=== PATIENT | male | born 1945 | race Caucasian/White ===

== ENCOUNTER → 2019-07-18 08:09 | Outpatient (BNVA) | payer MEDICARE, OTHER, SELFPAY | PROVIDERS: Family Provider Nurse Practitioner; PCP Nurse Practitioner; Visit Provider Urology | DX: R39.9 Unspecified symptoms and signs involving the genitourinary system (principal); N40.1 Benign prostatic hyperplasia with lower urinary tract symptoms; N39.41 Urge incontinence | CPT/HCPCS: 81001 ==

== ENCOUNTER 2019-11-29 08:08 | Outpatient (CLI) | payer MEDICARE, OTHER, SELFPAY ==
--- NOTE | 2019-11-29 08:21 | US_ITS ---
WS: [id number] ULTRASOUND RENAL TECHNIQUE: Ultrasound examination of both kidneys. CLINICAL INFORMATION: . COMPARISON: None. FINDINGS: RIGHT: Right kidney is normal in size and appearance. Echogenicity: Normal. Hydronephrosis: None. Perinephric fluid: None. Right kidney measures: 10.5 cm x 5.1 cm x 5.3 cm. LEFT: Left renal cyst measuring 9.7 cm x 7.6 mm Left kidney is normal in size and appearance. Echogenicity: Normal. Hydronephrosis: None. Perinephric fluid: None. Left kidney measures: 10.1 cm x 5.1 cm x 5.0 cm. Normal visualized aorta.Prevoid bladder 155 cc. postvoid 143 cc. Incomplete poor bladder emptying. US/US renal BI* [id number] IMPRESSION: 1. Left renal cyst measuring 9.7 x 7.6 mm. 2. Prevoid bladder 155 cc. Postvoid 143 cc. Incomplete bladder emptying. 3. No hydronephrosis in either kidney.
== END 2019-11-29 08:09 | disposition home or self-care (01) ==
LOC: RAD 08:14
PROVIDERS: PCP Nurse Practitioner; Visit Provider Urology
DX: N40.1 Benign prostatic hyperplasia with lower urinary tract symptoms (principal); N28.1 Cyst of kidney, acquired
CPT/HCPCS: 76770

== ENCOUNTER → 2020-03-05 08:01 | Outpatient (BNVA) | payer MEDICARE, OTHER, SELFPAY | PROVIDERS: PCP Nurse Practitioner; Visit Provider Urology | DX: N40.1 Benign prostatic hyperplasia with lower urinary tract symptoms (principal); N39.41 Urge incontinence; N36.8 Other specified disorders of urethra | CPT/HCPCS: 81001 ==

== ENCOUNTER → 2022-02-24 09:29 | Outpatient (BNVA) | payer MEDICARE, SELFPAY | PROVIDERS: PCP Nurse Practitioner Family; Visit Provider Surgery | DX: Z86.010 Personal history of colon polyps (principal); K42.9 Umbilical hernia without obstruction or gangrene | CPT/HCPCS: 99203 ==

== ENCOUNTER 2022-04-16 06:49 | Day surgery (SDC) | payer MEDICARE, SELFPAY ==
[2022-04-14 13:34] VITALS: BMI 29.4
[2022-04-16 07:16] VITALS: BP 161/84; PULSE 49; RESP 16; TEMP 36.1; O2SAT 97
--- NOTE | 2022-04-16 07:22 | W.PM.OPSFHP ---
Same Day Surgery H&P Indication for Procedure/HPI DATE OF PROCEDURE: April 16, 2022 CHIEF COMPLAINT/INDICATIONFOR SURGICAL PROCEDURE: History of colon polyps PREOP DIAGNOSIS: History of colon polyps PLANNED PROCEDURE: Operation Date: 04/16/22 08:30 Proposed Procedures p Colonoscopy 30368,Z86.010(Not Applicable) - Inocencio Simons MD 02/16/2022 This is a pleasant 77 years old gentleman with history of colon polyps.? Referred to my practice to discuss surveillance colonoscopy.? He also reports history of constipation but no change in bowel movement caliber.? No history of bleeding per rectum and he reports history of chronic umbilical hernia that bothers him every now and then. 04/16/2022 Patient comes today for surveillance colonoscopy ROS All systems have been reviewed negative except as for the above or per problem list. Medications/Allergies* Home Medications Medication Instructions Recorded Confirmed Type acetaminophen 500 mg tablet 500 mg PO DAILY 07/18/19 04/14/22 History (Tylenol Extra Strength) aspirin 325 mg tablet 325 mg PO DAILY 07/18/19 04/14/22 History calcium carbonate 600 mg-vitamin 1 cap PO DAILY 07/18/19 04/14/22 History D3 12.5 mcg (500 unit) capsule (Calcium 600 with Vitamin D3) garlic 1,000 mg capsule 1,000 mg PO DAILY 07/18/19 04/14/22 History hydrochlorothiazide 25 mg tablet 25 mg PO .QOD 07/18/19 04/14/22 History lisinopril 20 mg tablet 20 mg PO DAILY 07/18/19 04/14/22 History metformin 850 mg tablet 850 mg PO DAILY 07/18/19 04/14/22 History sildenafil 100 mg tablet (Viagra) 100 mg PO DAILY PRN Sexual Activity 07/18/19 04/16/22 History wheat dextrin 3 gram/3.5 gram oral 1 packet PO DAILY 07/18/19 04/14/22 History powder (Best Fiber) multivitamin 1 tab PO DAILY 02/24/22 04/14/22 History Allergies/Adverse Reactions Allergy/AdvReac Type Severity Reaction Status Date / Time No Known Allergies Allergy Verified 04/16/22 07:54 Pertinent History/Comorbid Conditions* Medical History (Updated 02/25/22 @ 17:10 by Inocencio Simons MD) BPH NOS w ur obs/LUTS Diabetes mellitus Erectile dysfunction Lower urinary tract symptoms (LUTS) Nocturia Urgency incontinence Surgical History (Updated 11/29/19 @ 09:35 by Indiana Ovalle APRN) History of back surgery Family History (Updated 07/11/19 @ 17:28 by JIGAR Bryant) Diabetes Mother CAD (coronary artery disease) Mother Cancer Mother Father Hypertension Father Social History Smoking and tobacco status: former smoker Adopted: No Caregiver/support person: No Lives independently: No Household members: spouse Marital status: History of recent travel: No Pertinent Exam Findings alert, oriented x 3, regular rate & rhythm and procedure specific exam findings (Abdominal exam nontender nondistended soft) Recommendations Surgery/Procedure today (Colonoscopy with possible biopsy) Coding Level of Care Code Acute Accounts Receivable Accountant for Vivek Jarquin
[2022-04-16] MEDS: sodium chloride 0.9% 1,000 ML 30 ML IV (07:28)
[2022-04-16 07:32] LABS: Glucose Point of Care 95 mg/dL (70-110)
--- NOTE | 2022-04-16 07:40 | ANES.PREANE2 ---
Pre-Anesthetic Assessment Height/Weight: Height 1.78 m Weight 92.986 kg Temp Pulse Resp BP Pulse Ox O2 Del Method 97.0 F L 49 L 16 161/84 97 04/16/22 07:16 04/16/22 07:16 04/16/22 07:16 04/16/22 07:16 04/16/22 07:16 04/16/22 07:16 Preop Diagnosis: History of colon polyps Operation Date: 04/16/22 08:30 Proposed Procedures p Colonoscopy 36198,Z86.010(Not Applicable) - Inocencio Simons MD Familial anesthetic complications: None Was Beta Neo taken within 24 hours: N/A Was Clonidine taken within 24 hours: N/A Last intake: Intake Last Liquid Date 04/15/22 Last Liquid Time 20:00 Last Solid Date 04/14/22 Last Solid Time 18:00 Social No alcohol and No tobacco Exam alert, oriented x 3, clear to auscultation bilaterally and regular rate & rhythm Airway Mallampati: Class III Dentition: false CV/HEM Hypertension Metabolic Diabetes Mellitus Anesthetic Plan ASA status: 3 Anesthesia: MAC Risk of > 500 ml blood loss (7ml/kg in children): No Medications/Allergies Home Medications Medication Instructions Recorded Confirmed Last Taken Type acetaminophen 500 mg tablet 500 mg PO DAILY 07/18/19 04/14/22 04/14/22 History (Tylenol Extra Strength) aspirin 325 mg tablet 325 mg PO DAILY 07/18/19 04/14/22 04/14/22 History calcium carbonate 600 mg-vitamin 1 cap PO DAILY 07/18/19 04/14/22 04/14/22 History D3 12.5 mcg (500 unit) capsule (Calcium 600 with Vitamin D3) garlic 1,000 mg capsule 1,000 mg PO DAILY 07/18/19 04/14/22 04/14/22 History hydrochlorothiazide 25 mg tablet 25 mg PO .QOD 07/18/19 04/14/22 04/14/22 History lisinopril 20 mg tablet 20 mg PO DAILY 07/18/19 04/14/22 04/14/22 History metformin 850 mg tablet 850 mg PO DAILY 07/18/19 04/14/22 04/14/22 History oxybutynin chloride 5 mg tablet 5 mg PO BID #60 tabs 07/18/19 04/14/22 04/14/22 Rx sildenafil 100 mg tablet (Viagra) 100 mg PO DAILY PRN Sexual Activity 07/18/19 04/16/22 Unknown History wheat dextrin 3 gram/3.5 gram oral 1 packet PO DAILY 07/18/19 04/14/22 04/14/22 History powder (Best Fiber) tamsulosin 0.4 mg capsule 0.4 mg PO .TWICE A DAY #60 caps 08/15/19 04/14/22 04/14/22 Rx multivitamin 1 tab PO DAILY 02/24/22 04/14/22 04/14/22 History peg 3350-electrolytes 236 240 ml PO Q10M #4,000 mL 02/24/22 04/14/22 04/15/22 Rx gram-22.74 gram-6.74 gram-5.86 gram solution (Golytely) Allergies Allergy/AdvReac Type Severity Reaction Status Date / Time No Known Allergies Allergy Verified 04/14/22 13:27 Current Medications Generic Name Dose Route Start Last Admin Trade Name Freq PRN Reason Stop Dose Admin Sodium Chloride 1,000 mls @ 30 mls/hr 04/16/22 07:00 04/16/22 07:28 Sodium Chloride 0.9% IV 04/17/22 06:59 30 mls/hr .Q24H MAKAYLA Administration PFSH Anesthesia Medical History BPH NOS w ur obs/LUTS Diabetes mellitus Erectile dysfunction Lower urinary tract symptoms (LUTS) Nocturia Urgency incontinence Surgical History History of back surgery Family History Mother CAD (coronary artery disease) Diabetes Cancer Father Hypertension Cancer Social History Smoking and tobacco status: former smoker Adopted: No Caregiver/support person: No Lives independently: No Household members: spouse Marital status: History of recent travel: No Data Anesthesia Cardiac Studies: No Data to Display
[2022-04-16 08:51] VITALS: BP 165/114; PULSE 83; RESP 18; TEMP 36.2; O2SAT 99
[2022-04-16 09:07] VITALS: BP 166/108; PULSE 85; RESP 18; O2SAT 97
[2022-04-16 09:27] VITALS: BP 183/109; PULSE 79; RESP 18; O2SAT 99
[2022-04-16] MEDS: hyDRALAzine 20 mg/mL INJ 1 mL 5 MG IVP (09:35)
[2022-04-16 09:45] VITALS: BP 174/97; PULSE 75; RESP 18; O2SAT 98
--- NOTE | 2022-04-16 12:41 | ANE.PACU2 ---
Inpatient post-anesthesia follow up: Airway intact: Yes Vital signs: Temperature 97.1 F Pulse Rate 75 Respiratory Rate 18 Blood Pressure 174/97 Pulse Oximetry 98 Oxygen Delivery Me thod Room Air Oxygen Flow Rate Fraction of Inspir ed Oxygen Hydration adequate: Yes Nausea and vomiting: No Pain level: 1 Mental status: Baseline
== END 2022-04-16 09:50 | disposition home or self-care (01) ==
PROVIDERS: PCP Nurse Practitioner Family; Visit Provider Surgery
PROC: 0DJD8ZZ Inspection of Lower Intestinal Tract, Via Natural or Artificial Opening Endoscopic (ICD-10-PCS; CPT 45378; principal; 2022-04-16 08:30)
DX: Z12.11 Encounter for screening for malignant neoplasm of colon (principal); Z86.010 Personal history of colon polyps; K57.30 Diverticulosis of large intestine without perforation or abscess without bleeding; D12.8 Benign neoplasm of rectum; K63.5 Polyp of colon; Z79.82 Long term (current) use of aspirin; N40.1 Benign prostatic hyperplasia with lower urinary tract symptoms; N13.8 Other obstructive and reflux uropathy; E11.9 Type 2 diabetes mellitus without complications; Z87.891 Personal history of nicotine dependence; I10 Essential (primary) hypertension; Z79.84 Long term (current) use of oral hypoglycemic drugs
CPT/HCPCS: 36416; 45380; 82962; 88305; J0360; J2704; J3490; J7030

== ENCOUNTER → 2022-04-28 15:21 | Outpatient (BNVA) | payer MEDICARE, SELFPAY | PROVIDERS: PCP Nurse Practitioner Family; Visit Provider Surgery | DX: Z09 Encounter for follow-up examination after completed treatment for conditions other than malignant neoplasm (principal); K57.31 Diverticulosis of large intestine without perforation or abscess with bleeding; K42.9 Umbilical hernia without obstruction or gangrene; Z86.010 Personal history of colon polyps | CPT/HCPCS: 99212 ==

== ENCOUNTER 2022-10-12 06:51 | Outpatient (CLI) | payer MEDICARE, SELFPAY ==
--- NOTE | 2022-10-12 | MR_ITS ---
WS: [id number] MRI LUMBAR SPINE NONCONTRAST TECHNIQUE: Sagittal T1, T2 and STIR imaging. Axial T1 and T2 imaging. CLINICAL INFORMATION: LOW BACK PAIN COMPARISON: MRI 4 FINDINGS: Postoperative changes are new compared to 2018. Pedicle screw fixation L3-L5. Interbody fusion L3-L4 and L4-L5. Laminectomy defects L3-L4 and L4-L5. T12-L1: Shallow central disc protrusion with moderate central canal stenosis. Impingement subarticula r recess bilaterally. Moderate facet arthropathy. Remote appearing laminectomy defects. Moderate bila teral foraminal narrowing. Central canal stenosis appears progressed compared to previous. Crowding o f the cauda equina nerve rootlets. Disc protrusion appears progressed. L1-L2: Slight retrolisthesis. Disc space narrowing at this level has progressed. Moderate to severe c entral canal stenosis has significantly progressed. Moderate bilateral foraminal narrowing LEFT great er than RIGHT. Moderate facet arthropathy. L2-L3: Mild disc bulging with central disc protrusion. Impingement on the RIGHT greater than LEFT sub articular recess. Moderate central canal stenosis appears slightly progressed. Impingement traversing RIGHT L3 nerve root. Moderate facet arthropathy. Moderate to severe RIGHT and mild LEFT foraminal na rrowing. L3-L4: Decompressive laminectomies. Spinal canal and foramen are patent. This is improved compared to previous. L4-L5: Laminectomy defects. Spinal canal is patent. Moderate facet arthropathy. Foramen are patent. L5-S1: Mild annular bulging with osteophytic ridging. Impingement on the LEFT S1 nerve root. Advanced facet arthropathy. Mild LEFT foraminal narrowing. Visualized pelvic bony structures: Normal. Paravertebral soft tissues: Normal. Small bilateral renal cysts . MR/MR lumbar spine wo con* [id number] IMPRESSION: 1. Postoperative changes are new since 2018. 2. Moderate to severe central canal stenosis L1-L2 significantly progressed co mpared to previous. Impingement on the LEFT subarticular recess. 3. Moderate central canal stenosis T12-L1 with crowding of the cauda equina ne rve rootlets. Interval decompressive laminectomy with persistent narrowing of t he thecal sac appears slightly progressed compared to previous with progressed central protrusion. 4. Moderate central canal stenosis L2-L3 appears slightly progressed with impi ngement traversing RIGHT L3 nerve root. 5. Spinal canal is patent at L3-L5. 6. Disc bulge L5-S1 impinges the LEFT S1 nerve root. 7. Multilevel foraminal narrowing described above worse at bilateral T12-L1, L EFT L1-L2, RIGHT L2-L3
== END 2022-10-12 06:52 | disposition home or self-care (01) ==
LOC: RAD 06:54
PROVIDERS: PCP Nurse Practitioner Family; Visit Provider Nurse Practitioner Family
DX: M48.062 Spinal stenosis, lumbar region with neurogenic claudication (principal); M48.04 Spinal stenosis, thoracic region; M51.37 Other intervertebral disc degeneration, lumbosacral region
CPT/HCPCS: 72148

== ENCOUNTER → 2022-11-04 08:45 | Outpatient (BNVA) | payer MEDICARE, SELFPAY | PROVIDERS: PCP Nurse Practitioner Family; Referring Provider Nurse Practitioner Family; Visit Provider Orthopaedic Surgery | DX: M54.50 Low back pain, unspecified (principal); M48.062 Spinal stenosis, lumbar region with neurogenic claudication; M54.9 Dorsalgia, unspecified | CPT/HCPCS: 72110; 99204 ==

== ENCOUNTER → 2023-01-20 08:03 | Outpatient (BNVA) | payer MEDICARE, SELFPAY | PROVIDERS: PCP Nurse Practitioner Family; Visit Provider Orthopaedic Surgery | DX: M48.062 Spinal stenosis, lumbar region with neurogenic claudication (principal) | CPT/HCPCS: 72110; 99214 ==

== ENCOUNTER → 2023-02-22 08:39 | Outpatient (BNVA) | payer MEDICARE, SELFPAY | PROVIDERS: PCP Nurse Practitioner Family; Visit Provider Orthopaedic Surgery | DX: M48.062 Spinal stenosis, lumbar region with neurogenic claudication (principal); Z98.1 Arthrodesis status | CPT/HCPCS: 72100; 99214 ==

== ENCOUNTER → 2023-04-12 09:09 | Outpatient (BNVA) | payer MEDICARE, SELFPAY | PROVIDERS: PCP Nurse Practitioner Family; Visit Provider Orthopaedic Surgery | DX: M48.062 Spinal stenosis, lumbar region with neurogenic claudication (principal); Z01.812 Encounter for preprocedural laboratory examination | CPT/HCPCS: 72100; 80053; 81003; 85025; 99214 ==

== ENCOUNTER 2023-05-04 18:32 | Inpatient (IN) | payer MEDICARE, SELFPAY ==
[2023-05-04] VITALS (62 sets, daily range): BP systolic 95–196; BP diastolic 58–92; PULSE 52–104; RESP 0–24; TEMP 35.8–36.6; O2SAT 93–99; BMI 29.4
[2023-05-04] MEDS: sodium chloride 0.9% 1,000 ML 30 ML IV (10:40)
[2023-05-04 10:41] LABS: Glucose Point of Care 98 mg/dL (70-110)
[2023-05-04] MEDS: HYDROmorphone 1 mg/mL INJ 1 mL 0.5 MG IVP (11:19)
[2023-05-04] MEDS: methadone 10 mg Tablet PO (11:21)
--- NOTE | 2023-05-04 11:31 | ANES.PREANE2 ---
Pre-Anesthetic Assessment Height/Weight: Height 1.78 m Weight 92.986 kg Temp Pulse Resp BP Pulse Ox O2 Del Method 97.8 F 52 L 18 196/92 95 Room Air 05/04/23 10:22 05/04/23 10:22 05/04/23 11:21 05/04/23 10:22 05/04/23 11:21 05/04/23 10:23 Preop Diagnosis: Lumbar stenosis, failed back fusion Operation Date: 05/04/23 11:30 Proposed Procedures p Thoracic Fusion(Not Applicable) - Richard England DO s Lumbar Spine Decompression Lumbar Decompression(Not Applicable) - Richard England DO s Sacroiliac Joint Fusion SI Joint Fusion(Not Applicable) - Richard England DO Familial anesthetic complications: Christianity Was Beta Neo taken within 24 hours: N/A Was Clonidine taken within 24 hours: N/A Last intake: Intake Last Liquid Date 05/03/23 Last Liquid Time 18:00 Last Solid Date 05/03/23 Last Solid Time 18:00 Social No alcohol and No tobacco Exam alert, oriented x 3, clear to auscultation bilaterally and regular rate & rhythm Airway Submandibular: within normal limits Cervical ROM: within normal limits Mallampati: Class II Dentition: false (upper) CV/HEM Hypertension Metabolic Diabetes Mellitus Musc/skel Lower Back Pain and Osteoarthritis/DJD Neuropsych chronic pain Anesthetic Plan ASA status: 3 Anesthesia: General Other: Discussed a.line, ICU, and blood transfusion (patient refuses any blood products based on sabianist reasons and is aware of potential for significant blood loss) Medications/Allergies Home Medications Medication Instructions Recorded Confirmed Last Taken Type aspirin 325 mg tablet 325 mg PO DAILY 07/18/19 05/03/23 04/14/22 History calcium carbonate 600 mg-vitamin 1 cap PO DAILY 07/18/19 05/03/23 04/28/23 History D3 12.5 mcg (500 unit) capsule (Calcium 600 with Vitamin D3) garlic 1,000 mg capsule 1,000 mg PO DAILY 07/18/19 05/03/23 04/28/23 History hydrochlorothiazide 25 mg tablet 12.5 mg PO .QOD 07/18/19 05/03/23 05/03/23 History lisinopril 20 mg tablet 10 mg PO DAILY 07/18/19 05/03/2323 History metformin 850 mg tablet 425 mg PO DAILY 07/18/19 05/03/23 05/02/23 History oxybutynin chloride 5 mg tablet 5 mg PO BID #60 tabs 07/18/19 05/03/23 05/02/23 Rx multivitamin 1 tab PO DAILY 02/24/22 05/03/23 04/28/23 History glucosamine-chondroitin 250 mg-200 2 tab PO TID 04/28/23 05/03/23 04/28/23 History mg tablet (Osteo Bi-Flex) saw palmetto 500 mg capsule 500 mg PO BID 04/28/23 05/03/23 04/28/23 History sour crow extract 1,000 mg 1,000 mg PO DAILY 04/28/23 05/03/23 04/28/23 History capsule (Tart Crow Extract) Allergies Allergy/AdvReac Type Severity Reaction Status Date / Time No Known Allergies Allergy Verified 05/03/23 08:52 Current Medications Generic Name Dose Route Start Last Admin Trade Name Freq PRN Reason Stop Dose Admin Hydromorphone HCl 0.5 mg 05/04/23 10:05 05/04/23 11:19 Hydromorphone 1 Mg/Ml Inj 1 Ml IVP 0.5 mg ONCE PRN Administration For preop pain/anxiety Sodium Chloride 1,000 mls @ 30 mls/hr 05/04/23 10:15 05/04/23 10:40 Sodium Chloride 0.9% IV 05/05/23 10:14 30 mls/hr .Q24H MAKAYLA Administration PFSH Anesthesia Medical History Erectile dysfunction Nocturia Diabetes mellitus BPH NOS w ur obs/LUTS Urgency incontinence Lower urinary tract symptoms (LUTS) Surgical History History of back surgery Family History Mother CAD (coronary artery disease) Diabetes Cancer Father Hypertension Cancer Social History Smoking and tobacco/nicotine status: former use of tobacco/nicotine Substance/Drug Use: never Adopted: No Caregiver/support person: No Lives independently: No Household members: spouse Marital status: Data Anesthesia Cardiac Studies: No Data to Display
--- NOTE | 2023-05-04 11:42 | W.PM.OPSUD ---
Surgery/Procedure H&P Update DATE OF PROCEDURE: May 04, 2023 DATE H&P PERFORMED: 04/28/23 H&P UPDATE INFORMATION: I have reviewed H&P completed within last 30 days, I have examined patient prior to procedure and No changes to prior documentation PREOP DIAGNOSIS: Lumbar stenosis, failed back fusion PLANNED PROCEDURE: Operation Date: 05/04/23 11:30 Proposed Procedures p Thoracic Fusion(Not Applicable) - DO dex Choudhary Lumbar Spine Decompression Lumbar Decompression(Not Applicable) - DO dex Choudhary Sacroiliac Joint Fusion SI Joint Fusion(Not Applicable) - Richard England DO
[2023-05-04] MEDS: ceFAZolin 2,000 MG in sodium chloride 0.9% (plus) 50 ML 100 MG IV ×2 (12:45→16:43)
[2023-05-04] MEDS: lidocaine-epi 2% 20 mL INJ INJECTION (14:29)
[2023-05-04] MEDS: vancomycin 1,000 MG SDV 1000 MG (14:30)
[2023-05-04] MEDS: heparin, porcine 1,000 unit/mL INJ 10 mL 10000 UNIT XX (14:30)
[2023-05-04] MEDS: thrombin 5,000 unit SDV 5000 UNIT XX ×2 (14:31→18:05)
--- NOTE | 2023-05-04 16:05 | PC.NURSE ---
Updated patient's friend, Viridiana, of patient's status and the expected ETA for end of surgery. Viridiana stated that she was going to go home and requested to be called when the surgery is completed and what room number he has.
--- NOTE | 2023-05-04 18:38 | P.OP_ITS ---
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 Posterior fusion T10 -pelvis 3.? Instrumentation T10-S1 4.? Lumbopelvic instrumentation 5. open right Sacral iliac fusion 6. open left sacral iliac fusion 7. L1/2 laminectomy with partial facetectomies 8. L2/3 laminectomy with partial facetectomies 9. use of computer navigation / stereotactic spine 10. use of autograft from same incision 11. allograft 12. Bone marrow aspirate from right iliac crest 13. Removal of deep hardware from the spine Surgeon: Richard England DO Estimated blood loss (mL): 800 Complications: There was a small bleb that occurred by the right L3 pedicle. There was no dural leak but I did place a DuraGen patch as well as DuraSeal to protect this area Where the arachnoid layer was exposed. Procedure: 1.? Posterior fusion T10 -pelvis 3.? Instrumentation T10-S1 4.? Lumbopelvic instrumentation 5. open right Sacral iliac fusion 6. open left sacral iliac fusion 7. L1/2 laminectomy with partial facetectomies 8. L2/3 laminectomy with partial facetectomies 9. use of computer navigation / stereotactic spine 10. use of autograft from same incision 11. allograft 12. Bone marrow aspirate from right iliac crest 13. Removal of deep hardware from the spine Patient is brought to the operative suite.? After undergoing anesthesia, the patient had neuro monitoring attached.? Patient was then placed in the prone position on the Logan table.? All areas of impingement were well-padded.? Patient was then prepped and draped in the normal sterile fashion.? Skin incision was then made over the T10 to the sacrum.? Subperiosteal dissection was made out to the transverse processes of of T10 bilaterally, T11 bilaterally, T12 bilaterally, L1 bilaterally, L2 bilaterally? L3 bilaterally L4 bilaterally L5 bilaterally and sacral ala bilaterally.? Next attention was brought to the screws at L3-5 bilaterally. Caps were removed and then the rods were removed and the screws were left in place. However the L4 and L5 screws on the right side went online so I removed those 2 screws. The caps were saved for later use when connecting the rods. The [employer] bone marrow aspirate kit was used to aspirate bone marrow aspirate.? This was done by using the sharp probe to open up the bone.? Aspiration was performed and then the blunt probe was then used to dissect down to through the bone tunnel.? An aspirating well drawn back a millimeter approximately 10 cc of bone marrow aspirate was used.? Admixed with the allograft and autograft bone that will be used. Next tension was brought to placing the fiducial for the computer navigation.? 2 pins were placed into the right iliac crest.? The fiducial was attached.? The C- arm was brought in and information from the C arm was then linked to the computer used for placing the screws.? Next attention was brought to placing the pedicle screws.? This was done by using the gearshift probe.? The probe was used to identify the pedicle.? Then the pedicle feeler was used followed by placement of screw.? This was done at T10 bilaterally, T11 bilaterally, T12 and L1 bilaterally L2 bilaterally. L3 through 5 where the old screws, and S1 bilaterally. Next attension was brought to placing the iliac screws.? This was done using the sacral ala iliac technique.? The gearshift probe linked to computer navigation was then placed through the sacral ala into the sacroiliac joint into the iliac crest.? Next the pedicle feeler was used followed by the computer navigated tap.? And then the screw was passed a 80 mm screw was placed on the right side and a 60 mm screw was placed on the left side.? Both the screws were 9.5 mm in diameter. Next attension was brought to performing the open and sacral iliac fusion.? This was done by again using the gearshift probe linked to computer navigation.? Followed by pedicle feeler followed by placing a wire and then the drill drilled over the wire and then bone graft was packed into the sacroiliac joint and into the drill hole.? And the sacroiliac screw was then placed.? This technique was done on both the right and left side. Next attention was brought to performing the laminectomy of L2.? This was done using the high-speed bur Kerrisons and curettes.? Once the lamina was removed and then attention was brought to performing a partial facetectomy on the contralateral side.? This was done again using the high-speed bur curettes and Kerrisons.? The ligamentum flavum was taken down bilaterally from L2 to L3.? Attention was then brought to the facet on the ipsilateral side.? The facet was taken down.? The L3 nerve was decompressed as it passed around the L3 pedicle.? The laminectomy was done for purposes of decompressing the nerve.? The L2 nerve was identified as it traversed through the L2/3 foramen.? The L3 nerve was traced around the L3 pedicles bilateral.? The scar tissue was pulled off the dura.? Bleb that occurred when the scar tissue was pulled and there was no dural leak. This bleb was right on the right side next to the right pedicle of L3 I placed a DuraGen patch and DuraSeal over it. Next attention was brought to performing the laminectomy of L1.? This was done using the high-speed bur Kerrisons and curettes.? Once the lamina was removed and then attention was brought to performing a partial facetectomy on the c ontralateral side.? This was done again using the high-speed bur curettes and Kerrisons.? The ligamentum flavum was taken down bilaterally from L1 to L2.? Attention was then brought to the facet on the ipsilateral side.? The facet was taken down.? The L2 nerve was decompressed as it passed around the L2 pedicle.? The laminectomy was done for purposes of decompressing the nerve.? The L2 nerve was identified as it traversed through the L2/3 foramen.? The L3 nerve was traced around the L5 pedicles bilateral.? The scar tissue was pulled off the dura.? There was found to be in good repair. Attention was then brought to attaching the rods to the screws placed in the T10 bilaterally, T11 bilaterally, T12 bilaterally, L 2 on the left?L3 bilaterally L4 bilaterally L5 bilaterally and S1 bilaterally.? The L4 and L5 screws that were previously and were removed for better alignment of the vignesh. The old caps were used from the [employer] screws at L3 bilaterally and L4and L5 on the left side. This was then attached to the sacroiliac screw providing the lumbopelvic fixation.? Caps were torqued into position. Locking the construct in place. Wound was copiously irrigated and then attention was brought to decorticating the facets and transverse processes laterally.? Bone that was taken down from the lamina was used along with osteoamp fibers and sponges were packed into the lateral gutters along the facet joints.? This was done bilaterally. Wound was then closed in a layered fashion starting with the thoracolumbar fascia.? 0-vicryl was used the sub cutaneous tissue was closed with 2-0 vicryl and skin with 4-0 monocryl.? Glue was then used to seal the skin and a steril dressing was applied.? Patient was then placed in the supine position. The endotracheal tube was removed and patient was transferred to the PACU in stable condition.
--- NOTE | 2023-05-04 18:40 | XR_ITS ---
WS: [id number] Lumbar spine, C-arm fluoroscopy views, 05/04/2023 Clinical Data: OR PICS Comparison: Lumbar spine, 04/12/2023 Findings: Dr. England performed an extensive posterior thoracolumbar fusion with bilateral pedicle screws and con necting rods. Impression: Posterior thoracolumbar fusion.
[2023-05-04] MEDS: lactated ringers 1,000 ML 90 ML IV (19:44)
--- NOTE | 2023-05-04 20:45 | PM.CONSULT ---
Providers/Reason For Consult Consulting Physician/Specialty*: Hospitalist Reason for Consult*: Postoperative management Attending Physician: Richard England DO Primary Care Provider: ARTEMIO Rollins History of Present Illness History of Present Illness Linden Graham is a 78 year old male postop day 0 status post spinal fusion with estimated blood loss 800 mL, removal of deep hardware from the spine, when I evaluated the patient patient was on 5 L oxy mask, with stable hemodynamics patient was lethargic fatigue somewhat confused after getting propofol during surgery, he is able to protect airway, moving his extremities, he does have 300 mL in the Hemovac drain, Carpenter catheter draining concentrated urine, patient is a Spiritism with history of diabetes, hypertension, I requested ICU nurse to get CBC, CMP and give 1 bag of albumin Review of Systems General: Reports: ROS unobtainable due to medical condition Medications/Allergies Home Medications Medication Instructions Recorded Confirmed Last Taken Type aspirin 325 mg tablet 325 mg PO DAILY 07/18/19 05/03/23 04/14/22 History calcium carbonate 600 mg-vitamin 1 cap PO DAILY 07/18/19 05/03/23 04/28/23 History D3 12.5 mcg (500 unit) capsule (Calcium 600 with Vitamin D3) garlic 1,000 mg capsule 1,000 mg PO DAILY 07/18/19 05/03/23 04/28/23 History hydrochlorothiazide 25 mg tablet 12.5 mg PO .QOD 07/18/19 05/03/23 05/03/23 History lisinopril 20 mg tablet 10 mg PO DAILY 07/18/19 05/03/23 05/03/23 History metformin 850 mg tablet 425 mg PO DAILY 07/18/19 05/03/23 05/02/23 History oxybutynin chloride 5 mg tablet 5 mg PO BID #60 tabs 07/18/19 05/03/23 05/02/23 Rx multivitamin 1 tab PO DAILY 02/24/22 05/03/23 04/28/23 History glucosamine-chondroitin 250 mg-200 2 tab PO TID 04/28/23 05/03/23 04/28/23 History mg tablet (Osteo Bi-Flex) saw palmetto 500 mg capsule 500 mg PO BID 04/28/23 05/03/23 04/28/23 History sour crow extract 1,000 mg 1,000 mg PO DAILY 04/28/23 05/03/23 04/28/23 History capsule (Tart Crow Extract) Allergies Allergy/AdvReac Type Severity Reaction Status Date / Time No Known Allergies Allergy Verified 05/03/23 08:52 Current Medications Generic Name Dose Route Start Last Admin Trade Name Freq PRN Reason Stop Dose Admin Hydromorphone HCl 0.5 mg 05/04/23 10:05 05/04/23 11:19 Hydromorphone 1 Mg/Ml Inj 1 Ml IVP 0.5 mg ONCE PRN Administration For preop pain/anxiety Sodium Chloride 1,000 mls @ 30 mls/hr 05/04/23 10:15 05/04/23 10:40 Sodium Chloride 0.9% IV 05/05/23 10:14 30 mls/hr .Q24H MAKAYLA Administration Lactated Ringer's 1,000 mls @ 90 mls/hr 05/04/23 18:30 05/04/23 19:44 Lactated Ringers IV 90 mls/hr .Q11H7M MAKAYLA Administration PFSH Acute PFSH: Medical History (Updated 05/04/23 @ 21:15 by Rogers Dumont MD) Erectile dysfunction Nocturia Diabetes mellitus BPH NOS w ur obs/LUTS Urgency incontinence Lower urinary tract symptoms (LUTS) Surgical History History of back surgery Family History Mother CAD (coronary artery disease) Diabetes Cancer Father Hypertension Cancer Social History Smoking and tobacco/nicotine status: former use of tobacco/nicotine Substance/Drug Use: never Adopted: No Caregiver/support person: No Lives independently: No Household members: spouse Marital status: Vitals/I&O/Wt Last Vital Signs Temp 96.4 F L 05/04/23 19:40 Pulse 82 05/04/23 19:40 Resp 11 L 05/04/23 19:40 BP 104/65 05/04/23 19:40 Pulse Ox 99 05/04/23 19:40 O2 Del Method Room Air 05/04/23 10:23 O2 Flow Rate 6 05/04/23 19:40 05/04/23 05/04/23 05/04/23 06:59 14:59 22:59 Intake Total 50 / 50 1150 / 1200 Output Total 1300 / 1300 Balance 50 / 50 -150 / -100 Weight last 48 hrs Weight 92.986 kg Physical Exam Narrative: Morbidly obese Fatigue, moving his extremities Purposeless movement Confused We will be redirectable Currently on 6 L facemask Abdomen distended ventral hernia Lower extremity without significant edema Hemodynamic stable Art line in place Carpenter catheter with concentrated urine S1, S2 Bilateral breath sounds Urinary Catheter Management: Carpenter: Cath Placed During This Visit: yes Urinary Catheter Date of Insertion: 05/04/23 Urinary Catheter Time of Insertion: 13:05 A&P Assessment and plan (1) Lumbar stenosis with neurogenic claudication: (2) Umbilical hernia: (3) History of colon polyps: (4) Diabetes mellitus: (5) Hypertension: (6) Postoperative anemia: Plan Postoperative anemia 800 mL during surgery 300 noted in the Hemovac drain We will give 1 bag of albumin Patient is a Spiritism We will check CBC and CMP Considering history of diabetes and hypertension I will keep him on consistent carb diet with sliding scale Check A1c level For hypertension we will hold off on any currently blood pressure within normal range Patient is confused due to propofol uses during surgery I will request ABG to see if patient would require BiPAP overnight Postop day [address] Opioids along bowel regimen Full code Consult Attestations Medical Necessity Statement: As per orthopedic service Coding Level of Care Code Acute Code for Chg Fwd Diagnoses Lumbar stenosis with neurogenic claudication M48.062 Umbilical hernia K42.9 History of colon polyps Z86.010 Diabetes mellitus E11.9 Hypertension I10 Postoperative anemia D64.9
[2023-05-04 21:08] LABS: Glucose Point of Care 193 mg/dL (70-110)
--- NOTE | 2023-05-04 21:46 | PC.NURSE ---
Patient was pulling at oral airway and @2055 it was removed. Patient placed on 4L NC with sats >95. Patient reported minimal pain and was able to state his name and date of . Hospitalist rounded and ordered more albumin. Patient had previously consented to surgery team for treatment with albumin and received one bottle prior to his arrival on the unit. Dressings remain dry and wound vac drainage filled approximately half the hemovac initially and has since remained at that level. Still remains on suction. BP remains in normal range and Art line is functioning. Clayton ames applied do to low temps of 96 or less since arrival.
[2023-05-04 21:48] LABS: Basophils % 0.1 %; Hematocrit 35.4 % (37-53); Lymphocytes # 0.5 10^3/uL (0.8-4.8); Mean Corpuscular HGB Conc 30.5 g/dL (30-55); Mean Corpuscular Hemoglobin 28.9 pg (27-33); Mean Corpuscular Volume 94.7 fl (82-101); Mean Platelet Volume 8.9 fL (7.4-10.4); Monocytes # 0.6 10^3/uL (0.2-0.9); Monocytes % 3.8 %; Neutrophils % 92.2 %; Nucleated Red Blood Cells % 0 %; Platelet Count 241 10^3/cmm (157-399); Red Blood Count 3.74 10^6/uL (3.85-5.65); Red Cell Distribution Width 13.2 % (12.1-15.1); White Blood Count 15.19 10^3/uL (3.29-11.43)
[2023-05-04 22:03] LABS: Alanine Aminotransferase 23 U/L (0-41); Albumin Level 3.7 g/dL (3.5-5.2); Alkaline Phosphatase 75 U/L (40-130); Anion Gap 17.8 (5-19); Aspartate Amino Transferase 35 U/L (0-40); Blood Urea Nitrogen 19 mg/dL (8-23); Calcium 7.6 mg/dL (8.5-10.5); Carbon Dioxide 21 mmol/L (22-29); Chloride 105 mmol/L (98-107); Globulin 2.3 g/dL (1.3-4.6); Glucose 219 mg/dL (65-115); Osmolality Calculated 297 mOsm/kg (285-295); Potassium 4.8 mmol/L (3.5-5.1); Sodium 139 mmol/L (136-145); Total Bilirubin 0.4 mg/dL (0.15-1.2)
[2023-05-04 22:05] LABS: Estmated Average Glucose 114; Hemoglobin A1C 5.6 % (4.0-6.0)
[2023-05-04 22:06] LABS: Lactate (Lactic Acid level) 6.2 mmol/L (0.5-2.2)
[2023-05-04] MEDS: HYDROmorphone 1 mg/mL INJ 1 mL 0.2 MG IVP (22:12)
[2023-05-04] MEDS: albumin 12.5 GM/250 ML VIAL IV (22:13)
--- NOTE | 2023-05-04 22:58 | XRR_ITS ---
PROCEDURE INFORMATION: Exam: XR Chest Exam date and time: 05/04/2023 11:20 PM Age: 78 years old Clinical indication: Other: Hypoxia TECHNIQUE: Imaging protocol: Radiologic exam of the chest. Views: 1 view. COMPARISON: No relevant prior studies available. FINDINGS: Lungs: Right upper lung granuloma, otherwise clear, symmetrically inflated lungs. Pleural spaces: No pleural effusion. No pneumothorax. Heart/Mediastinum: Cardiac silhouette is normal in size for technique. Bones/joints: Thoracolumbar fusion hardware is noted. XR/XR chest 1V portable [id number] IMPRESSION: No acute cardiopulmonary abnormality.
[2023-05-04] MEDS: cefepime 2,000 MG in sodium chloride 0.9% (plus) 50 ML 100 MG IV (23:31)
[2023-05-04] MEDS: calcium gluconate 0.1 gm/mL 10% SDV 10mL 1 GM IVP (23:32)
[2023-05-04 23:36] LABS: Parathyroid Hormone 163.5 pg/mL (15-65)
[2023-05-04 23:52] LABS: NT Pro B Type Natriuretic Pept < 36 pg/mL (0-450)
[2023-05-04] MEDS: lactated ringers 1,000 ML 999 ML IV (23:54)
[2023-05-05] VITALS (160 sets, daily range): BP systolic 99–141; BP diastolic 59–86; PULSE 64–104; RESP 0–25; TEMP 36.2–38.3; O2SAT 90–98
[2023-05-05 00:21] LABS: Urine Appearance SL Hazy (CLEAR); Urine Color Yellow (Yellow); pH Urine 5 (5-7)
[2023-05-05 00:22] LABS: Add Urine Microscopic? YES; Bacteria Urine TRACE /hpf; Bilirubin Urine Neg (Negative); Blood Urine 3+ (Negative); Glucose Urine UA Norm (Normal); Ketones Urine Negative (Negative); Leukocyte Esterase Urine Trace (Negative); Mucus Urine 2+ /hpf; Nitrate Urine Negative (Negative); Protein Urine Neg (Negative); RBC Urine 50-80 /hpf (0-2); Squamous Epithelial Cell Urine 0-4 /hpf (0-5); Urobilinogen Urine Norm (Negative)
[2023-05-05 00:23] LABS: Uric Acid Crystals Urine 0-4 /hpf
[2023-05-05 00:24] LABS: Add Urine Culture? Yes; Fine Granular Casts Urine RARE /lpf
[2023-05-05 00:46] LABS: ABG PCO2 39.7 mmHg (35-45); ABG PH Result 7.31 (7.35-7.45); Arterial Blood Gas Hematocrit 30.7 % (42-52); Base Excess ABG -5.7 mmol/L (-2.0-2.0); Blood Gas Sample Site Brachial, right; Blood Gas Sample Type Arterial; HCO3 ABG 20.1 mmol/L (22-26); PO2 ABG 68.4 mmHg (80.0-100.0); PO2 FiO2 Ratio Arterial Blood 0
[2023-05-05] MEDS: HYDROmorphone 1 mg/mL INJ 1 mL 0.2 MG IVP ×7 (01:17→15:58)
[2023-05-05 01:27] LABS: Lactate (Lactic Acid level) 4.4 mmol/L (0.5-2.2)
[2023-05-05] MEDS: vancomycin 1,500 MG/300 ML PIGGYBACK 200 MG IV ×2 (01:30→13:13)
[2023-05-05] MEDS: ceFAZolin 2,000 MG in sodium chloride 0.9% (plus) 50 ML 100 MG IV ×3 (01:57→18:31)
[2023-05-05] MEDS: lactated ringers 1,000 ML 999 ML IV (01:58)
[2023-05-05 04:17] LABS: Basophils % 0.1 %; Hematocrit 27.7 % (37-53); Lymphocytes # 0.4 10^3/uL (0.8-4.8); Lymphocytes % 3.5 %; Mean Corpuscular HGB Conc 32.5 g/dL (30-55); Mean Corpuscular Hemoglobin 29.8 pg (27-33); Mean Corpuscular Volume 91.7 fl (82-101); Mean Platelet Volume 8.8 fL (7.4-10.4); Monocytes # 0.6 10^3/uL (0.2-0.9); Monocytes % 5.4 %; Neutrophils # 9.82 10^3/uL (1.8-7.7); Neutrophils % 90.4 %; Nucleated Red Blood Cells % 0 %; Platelet Count 184 10^3/cmm (157-399); Red Blood Count 3.02 10^6/uL (3.85-5.65); Red Cell Distribution Width 13.3 % (12.1-15.1); White Blood Count 10.87 10^3/uL (3.29-11.43)
[2023-05-05 04:39] LABS: Anion Gap 14.9 (5-19); Blood Urea Nitrogen 17 mg/dL (8-23); Calcium 7.6 mg/dL (8.5-10.5); Carbon Dioxide 21 mmol/L (22-29); Chloride 106 mmol/L (98-107); Glucose 183 mg/dL (65-115); Osmolality Calculated 290 mOsm/kg (285-295); Potassium 4.9 mmol/L (3.5-5.1); Sodium 137 mmol/L (136-145)
[2023-05-05 06:02] LABS: Reflex Lactate Order REFLEX LACTIC ORDERD
[2023-05-05 07:04] LABS: Lactic Acid level (Lactate) 2.1 mmol/L (0.5-2.2)
--- NOTE | 2023-05-05 08:13 | P.PN_ITS ---
Subjective 2 Subjective: Patient's pain control resting in bed. He is get 5-5 strength bilateral lower extremities. Hemovac and put out about 600. He is now just to gravity and not suction. Vitals/I&O/Wt Last Vital Signs Temp 97.7 F 05/05/23 04:25 Pulse 68 05/05/23 06:36 Resp 11 L 05/05/23 06:30 BP 111/66 05/05/23 06:30 Pulse Ox 96 05/05/23 06:30 O2 Del Method Room Air 05/05/23 03:25 O2 Flow Rate 2 05/04/23 22:30 05/04/23 05/05/23 05/05/23 22:59 06:59 14:59 Intake Total 1150 / 1200 1422 / 2622 Output Total 1300 / 1300 1600 / 2900 Balance -150 / -100 -178 / -278 Weight last 48 hrs Weight 202 lb Weight 202 lb Weight 205 lb Physical Exam 2 Narrative: 5 5 strength bilateral lower extremities . Urinary Catheter Management: Carpenter: Cath Placed During This Visit: yes Reason for Continuing Indwelling Catheter: Accurate Measurement of Urinary Output in Critically Ill Patients Urinary Catheter Date of Insertion: 05/04/23 Urinary Catheter Time of Insertion: 13:05 Data 05/05/23 04:09 05/05/23 04:09 Micro: Microbiology 05/04/23 23:05 Blood Culture - Preliminary Blood SPECIMEN COLLECTED 05/04/23 23:05 Blood Culture - Preliminary Blood SPECIMEN COLLECTED A&P Assessment and plan (1) Status post lumbar laminectomy: Postop day #1 thoracolumbar fusion. Will start iron and erythropoietin Keep in bed today may sit up to eat. Hold blood thinners Attestations 2 Medical Necessity Statement*: Pain control Coding Level of Care Code Acute Code for Chg Fwd Diagnoses Status post lumbar laminectomy Z98.890
--- NOTE | 2023-05-05 08:17 | ANE.PACU2 ---
Inpatient post-anesthesia follow up: Airway intact: Yes Vital signs: Temperature 97.7 F Pulse Rate 68 Respiratory Rate 11 Blood Pressure 111/66 Pulse Oximetry 96 Oxygen Delivery Me thod Room Air Oxygen Flow Rate 2 Fraction of Inspir ed Oxygen Hydration adequate: Yes Nausea and vomiting: No Pain level: 4 Mental status: Baseline
[2023-05-05 08:35] LABS: Glucose Point of Care 131 mg/dL (70-110)
[2023-05-05] MEDS: docusate sodium 100 mg Capsule PO ×2 (08:51→18:32)
[2023-05-05] MEDS: metformin 850 mg Tablet 425 MG PO (08:52)
[2023-05-05] MEDS: oxybutynin 5 mg Tablet PO ×2 (08:53→18:32)
[2023-05-05] MEDS: sennosides-docusate Tablet 2 TAB PO ×2 (08:54→18:32)
[2023-05-05] MEDS: oxyCODONE 10 mg ER (12 HR) Tablet PO ×2 (08:55→18:31)
[2023-05-05] MEDS: epoetin alfa 10,000 unit/mL INJ 10000 UNIT SUBCUT (10:33)
[2023-05-05] MEDS: iron sucrose 200 MG in sodium chloride 0.9% (100 ml) 100 ML 220 MG IV (10:57)
[2023-05-05] MEDS: cefepime 2,000 MG in sodium chloride 0.9% (plus) 50 ML 100 MG IV ×2 (12:06→23:02)
[2023-05-05 13:07] LABS: Glucose Point of Care 117 mg/dL (70-110)
[2023-05-05] MEDS: ketorolac 30 mg/mL INJ IVP (13:12)
[2023-05-05] MEDS: oxyCODONE-APAP 5-325 mg Tablet PO (13:13)
--- NOTE | 2023-05-05 13:28 | P.PN_ITS ---
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 offers no complaints vitals stable he just finished eating breakfast Vitals/I&O/Wt Last Vital Signs Temp 97.7 F 05/05/23 04:25 Pulse 79 05/05/23 10:30 Resp 18 05/05/23 13:13 BP 131/68 05/05/23 10:30 Pulse Ox 95 05/05/23 13:13 O2 Del Method Room Air 05/05/23 10:30 O2 Flow Rate 2 05/04/23 22:30 05/04/23 05/05/23 05/05/23 22:59 06:59 14:59 Intake Total 1150 / 1200 1472 / 2672 2170 / 2170 Output Total 1300 / 1300 1600 / 2900 Balance -150 / -100 -128 / -228 2170 / 2170 Weight last 48 hrs Weight 91.626 kg Weight 91.626 kg Weight 92.986 kg Physical Exam 2 Narrative: Morbidly obese AOx3, doing well on room air now Abdomen distended ventral hernia Lower extremity without significant edema Hemodynamic stable Art line in place Carpenter catheter with concentrated urine S1, S2 Bilateral breath sounds Urinary Catheter Management: Carpenter: Cath Placed During This Visit: yes Reason for Continuing Indwelling Catheter: Accurate Measurement of Urinary Output in Critically Ill Patients Urinary Catheter Date of Insertion: 05/04/23 Urinary Catheter Time of Insertion: 13:05 Data 05/05/23 04:09 05/05/23 04:09 Micro: Microbiology 05/04/23 23:05 Blood Culture - Preliminary Blood SPECIMEN COLLECTED 05/04/23 23:05 Blood Culture - Preliminary Blood SPECIMEN COLLECTED A&P Assessment and plan (1) Lumbar stenosis with neurogenic claudication: (2) Umbilical hernia: (3) History of colon polyps: (4) Diabetes mellitus: (5) Hypertension: (6) Postoperative anemia: Plan Postoperative anemia 800 mL during surgery 300 noted in the Hemovac drain s/p 1 bag of albumin Patient is a [employer] We will check CBC and CMP hemoglobin so far stable, continue to monitor Considering history of diabetes and hypertension I will keep him on consistent carb diet with sliding scale Check A1c level For hypertension we will hold off on any currently blood pressure within normal range mental status ok now Postop day [address] Opioids along bowel regimen Full code Attestations 2 Medical Necessity Statement*: defer to primary team Diagnoses Lumbar stenosis with neurogenic claudication M48.062 Umbilical hernia K42.9 History of colon polyps Z86.010 Diabetes mellitus E11.9 Hypertension I10 Postoperative anemia D64.9
[2023-05-05 18:22] LABS: Glucose Point of Care 123 mg/dL (70-110)
[2023-05-05 21:32] LABS: Glucose Point of Care 137 mg/dL (70-110)
[2023-05-06] VITALS (101 sets, daily range): BP systolic 115–146; BP diastolic 62–96; PULSE 75–100; RESP 4–27; TEMP 36.6–37.2; O2SAT 90–99
[2023-05-06] MEDS: vancomycin 1,500 MG/300 ML PIGGYBACK 200 MG IV ×2 (01:08→12:58)
[2023-05-06] MEDS: magnesium hydroxide 30 mL UDC PO (01:49)
[2023-05-06 05:26] LABS: Basophils % 0.2 %; Eosinophils # 0.1 10^3/uL (0.0-0.8); Eosinophils % 0.9 %; Hematocrit 28.7 % (37-53); Lymphocytes # 0.9 10^3/uL (0.8-4.8); Lymphocytes % 8.3 %; Mean Corpuscular HGB Conc 31.4 g/dL (30-55); Mean Corpuscular Hemoglobin 28.8 pg (27-33); Mean Corpuscular Volume 91.7 fl (82-101); Mean Platelet Volume 9.4 fL (7.4-10.4); Monocytes # 0.8 10^3/uL (0.2-0.9); Monocytes % 7.5 %; Neutrophils # 8.54 10^3/uL (1.8-7.7); Neutrophils % 82.6 %; Nucleated Red Blood Cells % 0 %; Platelet Count 202 10^3/cmm (157-399); Red Blood Count 3.13 10^6/uL (3.85-5.65); Red Cell Distribution Width 13.7 % (12.1-15.1); White Blood Count 10.33 10^3/uL (3.29-11.43)
[2023-05-06 05:44] LABS: Anion Gap 12.4 (5-19); Blood Urea Nitrogen 16 mg/dL (8-23); Calcium 8.4 mg/dL (8.5-10.5); Carbon Dioxide 24 mmol/L (22-29); Chloride 104 mmol/L (98-107); Glucose 149 mg/dL (65-115); Osmolality Calculated 286 mOsm/kg (285-295); Potassium 4.4 mmol/L (3.5-5.1); Sodium 136 mmol/L (136-145)
--- NOTE | 2023-05-06 06:33 | P.PN_ITS ---
Subjective 2 Subjective: Patient is doing well take no pain meds throughout the night. Hemoglobin stable at 9 at this point patient can get out of bed and start working with physical therapy. Vitals/I&O/Wt Last Vital Signs Temp 99 F 05/06/23 00:00 Pulse 78 05/06/23 05:59 Resp 14 05/06/23 05:50 BP 139/73 05/06/23 05:50 Pulse Ox 95 05/06/23 05:50 O2 Del Method Room Air 05/05/23 19:30 O2 Flow Rate 2 05/04/23 22:30 05/05/23 05/05/23 05/06/23 14:59 22:59 06:59 Intake Total 2530 / 2530 1110 / 3640 400 / 4040 Output Total 1450 / 1450 3400 / 4850 Balance 2530 / 2530 -340 / 2190 -3000 / -810 Weight last 48 hrs Weight 202 lb Weight 202 lb Weight 205 lb Physical Exam 2 Narrative: 5-5 strength. Urinary Catheter Management: Carpenter: Cath Placed During This Visit: yes Reason for Continuing Indwelling Catheter: Accurate Measurement of Urinary Output in Critically Ill Patients Urinary Catheter Date of Insertion: 05/04/23 Urinary Catheter Time of Insertion: 13:05 Data 05/06/23 04:45 05/06/23 04:45 Micro: Microbiology 05/04/23 23:05 Blood Culture - Preliminary Blood NEGATIVE TO DATE 05/04/23 23:05 Blood Culture - Preliminary Blood NEGATIVE TO DATE A&P Assessment and plan (1) Status post lumbar spinal fusion: Postop day #2 from T10 to pelvis fusion. Up with physical therapy Transfer out of ICU if okay with hospitalist. Attestations 2 Medical Necessity Statement*: Pain control and monitor hemoglobin Coding Level of Care Code Acute Code for Chg Fwd Diagnoses Status post lumbar spinal fusion Z98.1
[2023-05-06 07:39] LABS: Glucose Point of Care 145 mg/dL (70-110)
[2023-05-06] MEDS: oxyCODONE 10 mg ER (12 HR) Tablet PO (08:13)
[2023-05-06] MEDS: lisinopril 20 mg Tablet 10 MG PO (08:13)
[2023-05-06] MEDS: sennosides-docusate Tablet 2 TAB PO (08:13)
[2023-05-06] MEDS: docusate sodium 100 mg Capsule PO (08:13)
[2023-05-06] MEDS: oxybutynin 5 mg Tablet PO (08:14)
[2023-05-06] MEDS: metformin 850 mg Tablet 425 MG PO (08:14)
[2023-05-06] MEDS: multivitamin therapeutic Tablet 1 TAB PO (08:14)
[2023-05-06] MEDS: calcium carb-vit d 600mg/400unit 1 Tablet 1 EACH PO (08:15)
[2023-05-06] MEDS: iron sucrose 200 MG in sodium chloride 0.9% (100 ml) 100 ML 220 MG IV (09:40)
--- NOTE | 2023-05-06 09:58 | PC.NURSE ---
drain pulled and dressing applied at this time ambrose schneider intact spine , has near syncopal episode when assist up to chair pt present with nursing in room noted drop in blood pressure
--- NOTE | 2023-05-06 10:06 | PC.SOCIAL ---
Pg 2 IMM Explained to pt on Pg 2 IMM. No questions voiced. Provided pt a copy. Initialed, dated, & timed a copy & placed in chart.
[2023-05-06] MEDS: cefepime 2,000 MG in sodium chloride 0.9% (plus) 50 ML 100 MG IV (11:21)
[2023-05-06 12:03] LABS: Glucose Point of Care 171 mg/dL (70-110)
[2023-05-06] MEDS: sodium chloride 0.9% 500 ML 999 ML IV (12:13)
[2023-05-06 12:19] LABS: Vancomycin Trough 14.8 ug/mL (10-15)
--- NOTE | 2023-05-06 15:01 | PM.PN ---
Subjective Subjective: seen this am hb stable today he says he walked with therapy vitals reviewed and stable earlier this am, he felt lightheaded when got up out of bed ns bolus 500 cc ordered Vitals/I&O/Wt Last Vital Signs Temp 99 F 05/06/23 00:00 Pulse 91 05/06/23 14:30 Resp 15 05/06/23 14:30 BP 124/62 05/06/23 14:30 Pulse Ox 95 05/06/23 14:30 O2 Del Method Room Air 05/05/23 19:30 O2 Flow Rate 2 05/04/23 22:30 FiO2 35 05/06/23 08:00 05/06/23 05/06/23 05/06/23 06:59 14:59 22:59 Intake Total 400 / 4040 1610 / 1610 Output Total 3400 / 4850 250 / 250 Balance -3000 / -810 1360 / 1360 Weight last 48 hrs Weight 91.626 kg Weight 91.626 kg Weight 91.626 kg Physical Exam Narrative: Morbidly obese AOx3, doing well on room air now Abdomen distended ventral hernia Lower extremity without significant edema Hemodynamic stable S1, S2 Bilateral breath sounds Urinary Catheter Management: Carpenter: Cath Placed During This Visit: yes Reason for Continuing Indwelling Catheter: Accurate Measurement of Urinary Output in Critically Ill Patients Urinary Catheter Date of Insertion: 05/04/23 Urinary Catheter Time of Insertion: 13:05 Data 05/06/23 04:45 05/06/23 04:45 Micro: Microbiology 05/04/23 23:40 Urine Culture - Preliminary Urine,Clean Catch 05/04/23 23:05 Blood Culture - Preliminary Blood NEGATIVE TO DATE 05/04/23 23:05 Blood Culture - Preliminary Blood NEGATIVE TO DATE A&P Assessment and plan (1) Lumbar stenosis with neurogenic claudication: (2) Umbilical hernia: (3) History of colon polyps: (4) Diabetes mellitus: (5) Hypertension: (6) Postoperative anemia: Plan Postoperative anemia 800 mL during surgery 300 noted in the Hemovac drain s/p 1 bag of albumin Patient is a Jehovah's witness We will check CBC and CMP hemoglobin so far stable at 9, continue to monitor Considering history of diabetes and hypertension I will keep him on consistent carb diet with sliding scale Check A1c level For hypertension we will hold off on any currently blood pressure within normal range mental status ok now Postop day 2 Opioids along bowel regimen Full code Attestations Medical Necessity Statement*: defer to primary team Diagnoses Lumbar stenosis with neurogenic claudication M48.062 Umbilical hernia K42.9 History of colon polyps Z86.010 Diabetes mellitus E11.9 Hypertension I10 Postoperative anemia D64.9
--- NOTE | 2023-05-06 15:46 | PC.NURSE ---
barnes removed and iv removed at this time pending discharge home
--- NOTE | 2023-05-16 06:42 | P.DS_ITS ---
Discharge Providers Date of Admission: 05/04/23 18:32 Date of Discharge: May 06, 2023 Attending Provider at Admission: Richard England DO Attending Provider at Discharge: Richard England DO Primary Care Provider: ARTEMIO Rollins Diagnoses at Discharge Discharge Diagnosis (1) Lumbar stenosis with neurogenic claudication: Status: Acute (2) Umbilical hernia: Status: Chronic (3) History of colon polyps: Status: Chronic (4) Diabetes mellitus: Status: Acute (5) Hypertension: Status: Acute (6) Postoperative anemia: Status: Acute Reason for Visit Reason for Visit: Z09, M48.062 Physical Exam Urinary Catheter Management: Carpenter: Cath Placed During This Visit: yes Reason for Continuing Indwelling Catheter: Accurate Measurement of Urinary Output in Critically Ill Patients Urinary Catheter Date of Insertion: 05/04/23 Urinary Catheter Time of Insertion: 13:05 Discharge Data Studies Completed and Pending Completed Studies During Hospitalization Category Date Time Status XR chest 1V portable 12529 Routine Exams 05/04/23 22:58 Completed XR lumbar spine 6V w f/e [id number] Routine Exams 05/04/23 18:40 Completed Radiology Impressions Chest X-Ray 05/04/23 22:58 IMPRESSION: No acute cardiopulmonary abnormality. Laboratory Results WBC 10.33 10^3/uL (3.29-11.43) 05/06/23 04:45 RBC 3.13 10^6/uL (3.85-5.65) L 05/06/23 04:45 Hgb 9.00 g/dL (11.27-16.99) L 05/06/23 04:45 Hct 28.7 % (37-53) L 05/06/23 04:45 MCV 91.7 fl (82-101) 05/06/23 04:45 MCH 28.8 pg (27-33) 05/06/23 04:45 MCHC 31.4 g/dL (30-55) 05/06/23 04:45 RDW 13.7 % (12.1-15.1) 05/06/23 04:45 Plt Count 202 10^3/cmm (157-399) 05/06/23 04:45 MPV 9.4 fL (7.4-10.4) 05/06/23 04:45 Neut % (Auto) 82.6 % 05/06/23 04:45 Lymph % (Auto) 8.3 % 05/06/23 04:45 Henderson % (Auto) 7.5 % 05/06/23 04:45 Eos % (Auto) 0.9 % 05/06/23 04:45 Baso % (Auto) 0.2 % 05/06/23 04:45 Neut # (Auto) 8.54 10^3/uL (1.8-7.7) H 05/06/23 04:45 Lymph # (Auto) 0.9 10^3/uL (0.8-4.8) 05/06/23 04:45 Henderson # (Auto) 0.8 10^3/uL (0.2-0.9) 05/06/23 04:45 Eos # (Auto) 0.1 10^3/uL (0.0-0.8) 05/06/23 04:45 Baso # (Auto) 0.0 10^3/uL (0.0-0.1) 05/06/23 04:45 Nucleated RBC % (auto) 0 % 05/06/23 04:45 Nucleated RBCs # 0.0 /100WBC 05/06/23 04:45 Specimen Type Arterial 05/04/23 00:40 Sample Site Brachial, right 05/04/23 00:40 ABG pH 7.31 (7.35-7.45) L 05/04/23 00:40 ABG pCO2 39.7 mmHg (35-45) 05/04/23 00:40 ABG pO2 68.4 mmHg (80.0-100.0) L 05/04/23 00:40 ABG PO2/FiO2 Ratio 0 05/04/23 00:40 ABG HCO3 20.1 mmol/L (22-26) L 05/04/23 00:40 ABG Base Excess -5.7 mmol/L (-2.0-2.0) L 05/04/23 00:40 Jerson Test N/a 05/04/23 00:40 Hematocrit 30.7 % (42-52) L 05/04/23 00:40 O2 Delivery Device None 05/04/23 00:40 FiO2 21.0 % 05/04/23 00:40 Telecommunications Officer ID [email or web address] 05/04/23 00:40 Sodium 136 mmol/L (136-145) 05/06/23 04:45 Potassium 4.4 mmol/L (3.5-5.1) 05/06/23 04:45 Chloride 104 mmol/L (98-107) 05/06/23 04:45 Carbon Dioxide 24 mmol/L (22-29) 05/06/23 04:45 Anion Gap 12.4 (5-19) 05/06/23 04:45 BUN 16 mg/dL (8-23) 05/06/23 04:45 Creatinine 1.0 mg/dL (0.7-1.2) 05/06/23 04:45 GFR Calculation Not Reportable 05/06/23 04:45 Glucose 149 mg/dL (65-115) H 05/06/23 04:45 POC Glucose 171 mg/dL (70-110) H 05/06/23 11:59 Estimat Average Glucose 114 05/04/23 21:25 Hemoglobin A1c 5.6 % (4.0-6.0) 05/04/23 21:25 Calculated Osmolality 286 mOsm/kg (285-295) 05/06/23 04:45 Lactic Acid 3.0 mmol/L (0.5-2.2) H 05/05/23 04:09 Lactic Acid (Sepsis) 2.1 mmol/L (0.5-2.2) 05/05/23 06:40 Lactate 4.4 mmol/L (0.5-2.2) H* 05/05/23 00:55 Calcium 8.4 mg/dL (8.5-10.5) L 05/06/23 04:45 Total Bilirubin 0.4 mg/dL (0.15-1.2) 05/04/23 21:25 AST 35 U/L (0-40) 05/04/23 21:25 ALT 23 U/L (0-41) 05/04/23 21:25 Alkaline Phosphatase 75 U/L (40-130) 05/04/23 21:25 NT-Pro-B Natriuret Pep < 36 pg/mL (0-450) 05/04/23 23:05 Total Protein 6.0 g/dL (6.6-8.7) L 05/04/23 21:25 Albumin 3.7 g/dL (3.5-5.2) 05/04/23 21:25 Globulin 2.3 g/dL (1.3-4.6) 05/04/23 21:25 PTH Intact 163.5 pg/mL (15-65) H 05/04/23 21:25 Calcium (PTH Intact) 8.0 mg/dL (8.5-10.5) L 05/04/23 21:25 Urine Color Yellow (Yellow) 05/04/23 23:40 Urine Appearance Sl hazy (CLEAR) A 05/04/23 23:40 Urine pH 5 (5-7) 05/04/23 23:40 Ur Specific [place] 1.020 (1.005-1.030) 05/04/23 23:40 Urine Protein Neg (Negative) 05/04/23 23:40 Urine Glucose (UA) Norm (Normal) 05/04/23 23:40 Urine Ketones Negative (Negative) 05/04/23 23:40 Urine Blood 3+ (Negative) H 05/04/23 23:40 Urine Nitrate Negative (Negative) 05/04/23 23:40 Urine Bilirubin Neg (Negative) 05/04/23 23:40 Urine Urobilinogen Norm mg/dL (Negative) 05/04/23 23:40 Ur Leukocyte Esterase Trace (Negative) H 05/04/23 23:40 Urine RBC 50-80 /hpf (0-2) H 05/04/23 23:40 Urine WBC 5-10 /hpf (0-5) H 05/04/23 23:40 Ur Squamous Epith Cells 0-4 /hpf (0-5) H 05/04/23 23:40 Uric Acid Crystals 0-4 /hpf 05/04/23 23:40 Amorphous Sediment Not Reportable 05/04/23 23:40 Urine Bacteria Trace /hpf (NONE) 05/04/23 23:40 Hyaline Casts 5-10 /lpf H 05/04/23 23:40 Fine Granular Casts Rare /lpf 05/04/23 23:40 Urine Mucus 2+ /hpf 05/04/23 23:40 Vancomycin Trough 14.8 ug/mL (10-15) 05/06/23 11:45 Vitals Last Vital Signs Temp 98 F 05/06/23 16:27 Pulse 91 05/06/23 16:27 Resp 15 05/06/23 16:27 BP 124/62 05/06/23 16:27 Pulse Ox 95 05/06/23 16:27 O2 Del Method Room Air 05/05/23 19:30 O2 Flow Rate 2 05/04/23 22:30 FiO2 35 05/06/23 08:00 Discharge Plan Discharge Patient Disposition: Home Condition: Stable Prescriptions: Continued aspirin 325 mg tablet 325 mg PO DAILY Hold Instructions: Resume on 04/21/22. garlic 1,000 mg capsule 1,000 mg PO DAILY Hold Instructions: Resume on 04/21/22. calcium carbonate-vitamin D3 [Calcium 600 with Vitamin D3] 600 mg(1,500mg) - 500 unit capsule 1 cap PO DAILY metformin 850 mg tablet 425 mg PO DAILY hydrochlorothiazide 25 mg tablet 12.5 mg PO .QOD lisinopril 20 mg tablet 10 mg PO DAILY oxybutynin chloride 5 mg tablet 5 mg PO BID Qty: 60 6RF multivitamin Tablet 1 tab PO DAILY saw palmetto 500 mg capsule 500 mg PO BID Rx Instructions: give with food (meal/snack) Tart Crow Extract 1,000 mg capsule 1,000 mg PO DAILY glucosamine-chondroitin [Osteo Bi-Flex] 250-200 mg tablet 2 tab PO TID Rx Instructions: give after food/meal Discharge Orders: Discharge Order (Routine); Ordered 05/06/23 Ordered By: Richard England Other Ambulatory Orders: Complete Blood Count w/Auto (Routine) Timeframe: [id number] Facility: [facility] - Location: Lab - Main Lab Ordered By: Richard England Referrals: Richard England, DO [Physician] - 05/12/23 (please call for this appointment or if you have follow up scheduled .or office will return call /left message in office to return call ) Discharge Diet: Advance as tolerated Discharge Activity: Limit activity as instructed Patient Instructions: Amoxicillin/Clavulanate Potassium (By mouth) (Augmentin, Augmentin..., Oxycodone, Slow Release (By mouth) (Oxycontin, Xtampza ER), Lumbar Spinal Fusion (DC), Opioid Safety Activity Restrictions/Additional Instructions: [facility] The following is a list of instructions, from your provider, to follow upon your discharge to ensure you have the optimal recovery from your recent injury orsurgery. Follow-up care is a michelle part of your treatment and safety. Be sure to make and go to all appointments, and call your doctor if you are having problems. If you do not already have a follow-up appointment made, call Dr. England office in the next 1-3 days to make follow up appointment for 2 weeks at [phone]. It is also a good idea to know your test results and keep a list of the medicines you take. Medications will be prescribed for you at your provider's discretion. These medications are to be used as instructed; if they are taken more often that prescribed they will not be refilled early and in most cases will not be refilled at all. > When a refill is needed,you should contact kellie roldan 2-3 business days before your prescription runs out. Medications will NOT be refilled by utilization review rn providers after hours! > Many pain medications contain Tylenol (Acetaminophen). Do not consume more than 4,000 mg of Tylenol per day in total with any combination ofmedications. > Pain medications can cause constipation. Please use an over the counter stool softener as directed, while taking pain medications. Consulty our local pharmacist with questions or recommendations on stool softeners. If constipation persists, contact our office or your primary care provider. > While under our care,you are not to receive pain medications or other controlled substances from any other provider unless our office is notified and approves. Any attempts to do so will result in refusal to prescribe any further pain medications and possible dismissal from our practice. ? Your wound and/or dressing should remain clean and dry for 7 days after surgery. On postoperative day 7 the dressingwill be changed in the office. It is okay to shower but keep dressing dry. Pad dry afterwards. > It is normal for there to be a small amount of discharge (bloody or bl ood tinged) present from a surgical wound for the first 1-3days. > The wound should be examined twice a day for signs of infection. Mild redness or bruising is to be expected but indications that an infection maybe starting would include; An increase in redness, swelling, or discharge, a foul odor present around the incision, and/or a fever greater than 101 ?F ? Showering is permitted, however we ask that you do not take a bath, sit in a whirlpool / Jacuzzi, or go swimming for 1 month. For only the first 2 days after surgery, lt wilt be necessary for you to cover your wound/dressing with plastic and tape to keep it dry. ? Walking is essential for the healing process after surgery. We would like you to slowly advance your walking. This should be done on relatively flat clear ground (inside or out) or can be done on a treadmill. Remember this goal does not have to happen all at once, slowly increase your distance and duration. This can be broken into more more than one walk per day as tolerated. Patients who walk as directed after surgery rarely require Physical Therapy. In the unlikely event this issue arises your provider will direct hospital staff to make the appropriate arrangements. ? No lifting over 5 pounds {a gallon of milk) or bending/twisting until further notice. Each of these activities places an unnecessary amount of stress onto the body and can impede the delicate healing process. > Instead of bending at the waist, keep your back straight and bend at the knees. > Instead of twisting your torso, keep your back straight and turn your entire body with your feet. ? You may sleep in any position which makes you comfortable. Many patients find comfort sleeping in a reclining chair. It is not abnormal to have difficulty sleeping for the first several weeks following your surgery. We recommend trying Benadry! or Tylenol PM as directed to help with your sleeping difficulties. Both medications are over the counter and available withoutprescription. ? NO SMOKING!!! Smoking dramatically increases the probability of developing postoperative wound infections. ? Common complaints after lumbar and/or thoracic spine surgery include, but are not limited to: numbness and/or tingling in the legs, pain around the incision and surrounding tissues, muscle spasms, or stiffness of the middle to low back. Contact our office if these symptoms persist or if an acute change occurs. ? No driving for the first 3-5days, and not while taking narcotics until seen at your follow-up appointment and cleared. There are no restrictions for riding on short trips, however if you take a longer trip, arrangements should be made to make regular stops to get out of the vehicle and stretch . ? Swelling is an unfortunate event that will take place with any surgery and is the primary source of your postoperative discomfort. While walking and regular approved activities helps control inflammation, there are additional steps you can take to minimizeswelling. > Place ice over the surgical site and surrounding tissue for twenty minutes, followed by applying a low/medium heat (heating pad) for an additional twenty minutes every 1-2 hours as needed for painrelief. > You may use of over the counter anti-inflammatory medications (Ibuprofen, Motrin, Aleve, Advil, etc) as directed on the package label. These types of medicines wm significantly reduce the amount of discomfort you experience after surgery from swelling. It should be noted that if you have and allergy to any of these medications, or a history of ulcers or kidney disease you should consult you primary care provider prior to starting these medications. Discharge Attestations Time Spent in Discharge Care*: less than 30 min Quality Metrics Clinical Quality Measures [ No reported AMI, CVA or VTE this stay] Coding Level of Care Code Acute Code for Chg Fwd Diagnoses Lumbar stenosis with neurogenic claudication M48.062 Umbilical hernia K42.9 History of colon polyps Z86.010 Diabetes mellitus E11.9 Hypertension I10 Postoperative anemia D64.9
== END 2023-05-06 17:07 | disposition home or self-care (01) | DRG 454 ==
LOC: ICU 18:34
PROVIDERS: Internal Medicine; Admitting Provider Orthopaedic Surgery; PCP Nurse Practitioner Family; Visit Provider Orthopaedic Surgery
PROC: 0RG707J Fusion of 2 to 7 Thoracic Vertebral Joints with Autologous Tissue Substitute, Posterior Approach, Anterior Column, Open Approach (ICD-10-PCS; CPT 63005; 2023-05-04 11:00)
PROC: 0RG707J Fusion of 2 to 7 Thoracic Vertebral Joints with Autologous Tissue Substitute, Posterior Approach, Anterior Column, Open Approach (ICD-10-PCS; CPT 27280; 2023-05-04 11:00)
PROC: 0RG707J Fusion of 2 to 7 Thoracic Vertebral Joints with Autologous Tissue Substitute, Posterior Approach, Anterior Column, Open Approach (ICD-10-PCS; 2023-05-04 11:00)
DX: M48.062 Spinal stenosis, lumbar region with neurogenic claudication (principal); D62 Acute posthemorrhagic anemia; I10 Essential (primary) hypertension; N40.1 Benign prostatic hyperplasia with lower urinary tract symptoms; N39.498 Other specified urinary incontinence; R35.1 Nocturia; E11.9 Type 2 diabetes mellitus without complications; K42.9 Umbilical hernia without obstruction or gangrene; E66.01 Morbid (severe) obesity due to excess calories; N52.9 Male erectile dysfunction, unspecified; Z68.29 Body mass index [BMI] 29.0-29.9, adult; Z87.891 Personal history of nicotine dependence; Z79.84 Long term (current) use of oral hypoglycemic drugs; Z79.82 Long term (current) use of aspirin; Z98.1 Arthrodesis status
CPT/HCPCS: 36415; 36416; 36600; 51702; 71045; 72114; 76000; 80048; 80053; 80202; 81001; 81003; 82310; 82803; 82962; 83036; 83605; 83880; 83970; 85025; 87040; 87086; 96372; 96376; 97116; 97161; 97530; C1713; C1762; J0131; J0612; J0690; J0692; J1100; J1170; J1644; J1756; J1815; J1885; J2371; J2405; J2704; J3010; J3370; J3490; J7030; J7040; J7120; P9045; Q4081

== ENCOUNTER → 2023-05-17 09:59 | Outpatient (BNVA) | payer MEDICARE, SELFPAY | PROVIDERS: PCP Nurse Practitioner Family; Visit Provider Physician Assistant | DX: Z98.1 Arthrodesis status (principal); Z47.89 Encounter for other orthopedic aftercare | CPT/HCPCS: 72100; 99024 ==

== ENCOUNTER → 2023-05-24 09:57 | Outpatient (BNVA) | payer MEDICARE, SELFPAY | PROVIDERS: PCP Nurse Practitioner Family; Visit Provider Orthopaedic Surgery | DX: Z98.1 Arthrodesis status (principal); Z47.89 Encounter for other orthopedic aftercare | CPT/HCPCS: 99024 ==

== ENCOUNTER → 2023-06-14 09:42 | Outpatient (BNVA) | payer MEDICARE, SELFPAY | PROVIDERS: PCP Nurse Practitioner Family; Visit Provider Orthopaedic Surgery | DX: Z47.89 Encounter for other orthopedic aftercare (principal); Z98.1 Arthrodesis status | CPT/HCPCS: 72100; 99024 ==

== ENCOUNTER → 2023-07-26 08:11 | Outpatient (BNVA) | payer MEDICARE, SELFPAY | PROVIDERS: PCP Nurse Practitioner Family; Visit Provider Orthopaedic Surgery | DX: Z98.1 Arthrodesis status (principal); Z47.89 Encounter for other orthopedic aftercare | CPT/HCPCS: 72100; 99024 ==

== ENCOUNTER → 2023-10-25 07:53 | Outpatient (BNVA) | payer MEDICARE, SELFPAY | PROVIDERS: PCP Nurse Practitioner Family; Visit Provider Orthopaedic Surgery | DX: Z98.1 Arthrodesis status (principal) | CPT/HCPCS: 72100; 99213 ==

== ENCOUNTER 2024-04-12 07:48 | Outpatient (CLI) | payer MEDICARE, SELFPAY ==
--- NOTE | 2024-04-12 07:56 | MR_ITS ---
WS: [id number] MRI HEAD WITHOUT AND WITH GADOLINIUM ENHANCEMENT ORBIT PROTOCOL. TECHNIQUE: Sagittal T1, T2 axial, T2 axial FLAIR, axial susceptibility weighted imaging, axial diffus ion weighted images, and coronal T2 images were obtained. Pre and post-T1 axial and post T1 coronal i mages. ADC and FSPGR images. Orbit protocol utilized. CLINICAL INFORMATION: VISION CHANGES COMPARISON: None. FINDINGS: No evidence of restricted diffusion to suggest acute ischemia. Ventricular system and basilar cistern s are patent. Moderate small vessel changes. Moderate parenchymal volume loss worse in the parietal l obes. A few tiny chronic lacunar infarcts in the centrum semiovale. Chronic lacunar infarct in the LE FT cerebellum. Normal vascular flow voids at the skull base. No extra-axial fluid collections. Parana celeste sinuses are well aerated. Mastoid air cells are well aerated. Normal posterior nasopharynx. Chron ic tiny lacunar infarcts in the thalami bilaterally. No hemosiderin on the susceptibly weighted images. Normal optic chiasm and pituitary infundibulum. Mi ld symmetric atrophy temporal lobes and hippocampal formations. No evidence of optic nerve edema. No evidence of sellar or suprasellar mass. No abnormal intracranial enhancement. Normal visualized rectus muscles. No evidence of optic neuritis. Proximal IACs are norm al in appearance. MR/MR head orbits wo/w* 58223/43 IMPRESSION: 1. No evidence of restricted diffusion to suggest acute ischemia. 2. No evidence of optic nerve edema or optic neuritis. 3. Normal optic chiasm and pituitary infundibulum. 4. Moderate small vessel changes with moderate parenchymal volume loss worse i n the parietal lobes. 5. A few tiny chronic lacunar infarcts in the centrum semiovale, bilateral evelyn lami and LEFT cerebellum. 6. No other acute findings.
[2024-04-12] MEDS: gadobenate dimeglumine 20 mL vial IV (09:52)
== END 2024-04-12 07:49 | disposition home or self-care (01) ==
LOC: RAD 07:50
PROVIDERS: PCP Nurse Practitioner Family; Visit Provider Student in an Organized Health Care Education/Training Program
DX: H49.13 Fourth [trochlear] nerve palsy, bilateral (principal); I67.89 Other cerebrovascular disease; G31.89 Other specified degenerative diseases of nervous system
CPT/HCPCS: 70543; 70553

== ENCOUNTER → 2024-05-01 07:56 | Outpatient (BNVA) | payer MEDICARE, SELFPAY | PROVIDERS: PCP Nurse Practitioner Family; Visit Provider Orthopaedic Surgery | DX: Z98.1 Arthrodesis status (principal) | CPT/HCPCS: 72100; 99213 ==

== ENCOUNTER → 2024-10-01 08:01 | Outpatient (BNVA) | payer MEDICARE, SELFPAY | PROVIDERS: PCP Nurse Practitioner Family; Visit Provider Student in an Organized Health Care Education/Training Program | DX: D50.9 Iron deficiency anemia, unspecified (principal) | CPT/HCPCS: 99204 ==

== ENCOUNTER 2024-10-30 11:11 | Day surgery (SDC) | payer MEDICARE, SELFPAY ==
[2024-10-30 11:24] VITALS: BMI 29.4
[2024-10-30 11:25] VITALS: BP 177/89; PULSE 60; RESP 16; TEMP 36.6; O2SAT 94
[2024-10-30] MEDS: sodium chloride 0.9% 1,000 ML 15 ML IV (11:32)
--- NOTE | 2024-10-30 11:39 | W.PM.OPSUD ---
Surgery/Procedure H&P Update DATE OF PROCEDURE: October 30, 2024 DATE H&P PERFORMED: 10/01/24 H&P UPDATE INFORMATION: I have reviewed H&P completed within last 30 days, I have examined patient prior to procedure and No changes to prior documentation PLANNED PROCEDURE: Operation Date: 10/30/24 12:30 Proposed Procedures p EGD 21081 [id number] G0105 D50.9(Not Applicable) - Trevon Hill MD s Colonoscopy(Not Applicable) - Trevon Hill MD
[2024-10-30 11:50] LABS: Glucose Point of Care 88 mg/dL (70-110)
--- NOTE | 2024-10-30 12:32 | ANES.PREANE2 ---
Pre-Anesthetic Assessment Height/Weight: Height 5 ft 10 in Weight 205 lb Preop Diagnosis: Screening colonoscopy Operation Date: 10/30/24 12:30 Proposed Procedures p EGD [id number] G0105 D50.9(Not Applicable) - Trevon Hill MD s Colonoscopy(Not Applicable) - Trevon Hill MD Was Beta Neo taken within 24 hours: N/A Was Clonidine taken within 24 hours: N/A Last intake: Intake Last Liquid Date 10/29/24 Last Liquid Time 23:30 Last Solid Date 10/28/24 Last Solid Time 18:00 Social No alcohol and No tobacco Exam alert, oriented x 3, clear to auscultation bilaterally and regular rate & rhythm Airway Submandibular: within normal limits Cervical ROM: within normal limits Mallampati: Class II Dentition: full Anesthetic Plan ASA status: 3 Anesthesia: MAC Other: No prior issues with anesthesia NPO since yesterday evening History of diabetes, on metformin Patient states that he used to take lisinopril for hypertension but has since stopped it. Preop BP 170s Denies any pulmonary issues, quit smoking 8 years ago Plan for MAC anesthesia Medications/Allergies Home Medications ?Medication ?Instructions ?Recorded ?Confirmed ?Last Taken ?Type calcium 600 mg (as 1 cap PO DAILY 07/18/19 10/30/24 10/28/24 History carbonate)-vitamin D3 12.5 mcg (500 unit) capsule (Calcium with Vit D3) garlic 1,000 mg capsule 1,000 mg PO DAILY 07/18/19 10/30/24 10/28/24 History metformin 850 mg tablet 425 mg PO DAILY 07/18/19 10/30/24 10/28/24 History sour crow extract 1,000 mg 1,000 mg PO DAILY 04/28/23 10/30/24 10/28/24 History capsule (Tart Crow Extract) acetaminophen 300 mg-codeine 30 mg 1 tab PO PRN PRN Migraine Headache 10/01/24 10/30/24 10/28/24 History tablet tamsulosin 0.4 mg capsule 0.4 mg PO DAILY 10/01/24 10/30/24 10/28/24 History oxybutynin chloride 5 mg tablet 5 mg PO DAILY 10/25/24 10/30/24 10/28/24 History Allergies Allergy/AdvReac Type Severity Reaction Status Date / Time No Known Allergies Allergy Verified 10/30/24 11:23 Current Medications Generic Name Dose Route Start Last Admin Trade Name Freq PRN Reason Stop Dose Admin Sodium Chloride 1,000 mls @ 15 mls/hr 10/30/24 11:17 10/30/24 11:32 Sodium Chloride 0.9% IV 10/31/24 11:16 15 mls/hr .Q24H PRN Administration COLONOSCOPY FLUIDS PFSH Anesthesia Medical History Erectile dysfunction Nocturia Diabetes mellitus BPH NOS w ur obs/LUTS Urgency incontinence Lower urinary tract symptoms (LUTS) Surgical History History of back surgery Family History Mother CAD (coronary artery disease) Diabetes Cancer Father Hypertension Cancer Social History Smoking and tobacco/nicotine status: unknown if used tobacco/nicotine Substance/Drug Use: never Adopted: No Caregiver/support person: No Lives independently: No Household members: spouse Marital status:
[2024-10-30 12:36] VITALS: BP 126/82; PULSE 81; RESP 18; TEMP 36.4; O2SAT 96
[2024-10-30 13:06] VITALS: BP 144/93; PULSE 77; RESP 16; O2SAT 95
--- NOTE | 2024-10-30 13:21 | ANE.PACU2 ---
Inpatient post-anesthesia follow up: Airway intact: Yes Vital signs: Temperature 97.6 F Pulse Rate 77 Respiratory Rate 16 Blood Pressure 144/93 Pulse Oximetry 95 Oxygen Delivery Me thod Room Air Oxygen Flow Rate Fraction of Inspir ed Oxygen Hydration adequate: Yes Nausea and vomiting: No Pain level: 1 Mental status: Baseline
== END 2024-10-30 13:21 | disposition home or self-care (01) ==
PROVIDERS: PCP Nurse Practitioner Family; Visit Provider Student in an Organized Health Care Education/Training Program
PROC: 0DJ08ZZ Inspection of Upper Intestinal Tract, Via Natural or Artificial Opening Endoscopic (ICD-10-PCS; principal; 2024-10-30 12:30)
PROC: 0DJD8ZZ Inspection of Lower Intestinal Tract, Via Natural or Artificial Opening Endoscopic (ICD-10-PCS; CPT 45378; 2024-10-30 12:30)
DX: K29.50 Unspecified chronic gastritis without bleeding (principal); K57.30 Diverticulosis of large intestine without perforation or abscess without bleeding; D50.9 Iron deficiency anemia, unspecified; E11.9 Type 2 diabetes mellitus without complications; Z79.899 Other long term (current) drug therapy; Z79.84 Long term (current) use of oral hypoglycemic drugs; Z87.891 Personal history of nicotine dependence
CPT/HCPCS: 36416; 43239; 45378; 82962; 88305; 88342; J2704; J7030

== ENCOUNTER → 2024-11-12 09:08 | Outpatient (BNVA) | payer MEDICARE, SELFPAY | PROVIDERS: PCP Nurse Practitioner Family; Visit Provider Student in an Organized Health Care Education/Training Program | DX: Z09 Encounter for follow-up examination after completed treatment for conditions other than malignant neoplasm (principal) | CPT/HCPCS: 99213 ==